=== PATIENT | female | born 1985 | race Caucasian/White ===

== ENCOUNTER → 2018-07-12 | Outpatient (CLI) | payer BC | LOC: COL.RAD 08:31 | DX: Z45.41 Encounter for adjustment and management of cerebrospinal fluid drainage device (principal); G93.2 Benign intracranial hypertension; Z98.2 Presence of cerebrospinal fluid drainage device ==

== ENCOUNTER 2018-07-17 08:02 | Outpatient (CLI) | payer BC ==
[2018-07-17] VITALS (9 sets, daily range): BP systolic 102–134; BP diastolic 60–87; PULSE 53–68
[~2018-07-17] VITALS: Ht 170.2 cm; Wt 79.0 kg
--- NOTE | 2018-07-17 09:25 | NUR ---
Pt to [facility] 9 per cart s/p LP. Pt resting well, at bedside.
[2018-07-17 10:12] LABS: GLUCOSE,CSF 48 mg/dL (40-70); TOTAL PROTEIN,CSF 71 mg/dL (15-45)
--- NOTE | 2018-07-17 11:35 | NUR ---
Pt has ambulated, voided and agatha PO intake s n/v.
--- NOTE | 2018-07-17 11:43 | NUR ---
Pt discharged per w/c by nurse with .
== END 2018-07-17 11:48 | disposition home or self-care (01) ==
LOC: COL.RAD 08:02
DX: G93.2 Benign intracranial hypertension (principal); Z86.011 Personal history of benign neoplasm of the brain